=== PATIENT | female | born 1980 | race Caucasian/White ===

== ENCOUNTER 2017-07-28 17:22 | Emergency (ER) | payer SELFPAY ==
[~2017-07-28] VITALS: Ht 165.1 cm; Wt 113.2 kg
[2017-07-28 17:24] VITALS: BP 155/85
== END 2017-07-28 19:21 | disposition left against medical advice (07) ==
LOC: ED 19:15
DX: K08.89 Other specified disorders of teeth and supporting structures (principal)
CPT/HCPCS: 99281